=== PATIENT | female | born 1985 ===

== ENCOUNTER 2021-06-11 10:20 | Inpatient (IN) | payer BC ==
[2021-06-11] MEDS ORDERED: Acetaminophen/oxyCODONE 325-5 MG Tab PO PRN ×2 (10:37→13:35)
[2021-06-11] MEDS ORDERED: diphenhydrAMINE 50 MG/ML SDV IVPUSH PRN ×2 (10:37→13:35)
[2021-06-11] MEDS ORDERED: fentaNYL 100 MCG/2 ML SDV IVPUSH PRN ×2 (10:37)
[2021-06-11] MEDS ORDERED: HYDROmorphone 1 MG/ML Syringe IVPUSH PRN (10:37)
[2021-06-11] MEDS ORDERED: ePHEDrine 50 MG/ML SDV IVPUSH PRN (10:37)
[2021-06-11] MEDS ORDERED: Morphine 4 MG/ML VIAL IVPUSH PRN ×2 (10:37→20:11)
[2021-06-11] MEDS ORDERED: Ondansetron 4 MG/2 ML SDV IVPUSH PRN ×3 (10:37→13:35)
[2021-06-11] MEDS ORDERED: Albuterol 0.083% 2.5 MG/3 ML Neb Soln NEB PRN (10:37)
[2021-06-11] MEDS ORDERED: Naloxone 0.4 MG/ML SDV IVPUSH PRN (10:37)
[2021-06-11] MEDS ORDERED: Metoclopramide 10 MG/2 ML SDV IVPUSH PRN (10:37)
[2021-06-11] MEDS ORDERED: ceFAZolin 1 GM Vial ONE (10:49)
[2021-06-11] MEDS ORDERED: EPINEPHrine 1 MG/1 ML Amp ONE (10:49)
[2021-06-11] MEDS ORDERED: Dexmedetomidine 200 MCG/2 ML SDV ONE (10:49)
[2021-06-11] MEDS ORDERED: Ondansetron 4 MG/2 ML SDV ONE (10:49)
[2021-06-11] MEDS ORDERED: Lidocaine 2% 5 ML SDV ONE (10:49)
[2021-06-11] MEDS ORDERED: fentaNYL 100 MCG/2 ML SDV ONE (10:49)
[2021-06-11] MEDS ORDERED: Dexamethasone 4 MG/ML 5 ML MDV ONE (10:49)
[2021-06-11] MEDS ORDERED: Phenylephrine 1% 10 MG/ML SDV ONE (10:49)
[2021-06-11] MEDS ORDERED: Morphine PF 10 MG/10 ML SDV ONE (10:50)
[2021-06-11] MEDS ORDERED: Ropivacaine 0.5% 5 MG/ML 30 ML SDV ONE (10:52)
[2021-06-11] MEDS ORDERED: ceFAZolin 2 GM in Premix Bag 1 BAG IV ONE (11:14)
[2021-06-11] MEDS ORDERED: Sodium Chloride 0.9% 2.5 ML Syringe FLUSH PRN (11:14)
[2021-06-11] MEDS ORDERED: Sodium Chloride 0.9% 10 ML Syringe FLUSH PRN (11:14)
[2021-06-11] MEDS ORDERED: Sodium Chloride 0.9% 20 ML SDV IV PRN (11:14)
[2021-06-11] MEDS ORDERED: Oxytocin/0.9 % Sodium Chloride 30 UNIT/500 ML BAG IV SCH (11:15)
[2021-06-11] MEDS: Lactated Ringers 1,000 ML IV SCH ×2 (11:15→11:56)
[2021-06-11] MEDS ORDERED: Midazolam 1 MG/ML 2 ML SDV ONE (13:15)
[2021-06-11] MEDS ORDERED: Lanolin 100% Cream 7 GM Tube TOP PRN (13:35)
[2021-06-11] MEDS ORDERED: Aluminum Hydroxide/Magnesium Hydroxide/Simethicone XS Susp 30 ML Cup PO PRN (13:35)
[2021-06-11] MEDS ORDERED: Oxytocin 10 Units/1 ML SDV IM PRN (13:35)
[2021-06-11] MEDS ORDERED: Bisacodyl 10 MG Supp RECTAL PRN (13:35)
[2021-06-11] MEDS ORDERED: Methylergonovine 0.2 MG/1 ML Amp IM PRN (13:35)
[2021-06-11] MEDS ORDERED: Tranexamic Acid 1,000 MG in Sodium Chloride 0.9% 100 ML IV PRN (13:35)
[2021-06-11] MEDS ORDERED: Misoprostol 200 MCG Tab RECTAL PRN (13:35)
[2021-06-11] MEDS ORDERED: Lactated Ringers 1,000 ML IV SCH (13:45)
[2021-06-11] MEDS ORDERED: Ketorolac 30 MG/ML SDV IVPUSH SCH (13:45)
[2021-06-11] MEDS ORDERED: Calcium Chloride 10% 1 GM/10 ML Syringe IVPUSH ONE (16:11)
[2021-06-11] MEDS ORDERED: Sodium Chloride 0.9% 100 ML ONE (16:22)
[2021-06-11] MEDS ORDERED: ePHEDrine 50 MG/ML SDV IM ONE (16:30)
[2021-06-11 17:33] LABS: BLOOD UREA NITROGEN,BUN 13 mg/dL (7.0-18.0); CARBON DIOXIDE,CO2 21.2 mmol/L (21.0-32.0); CHLORIDE,CL 104 mmol/L (98-107); GLUCOSE RANDOM 133 mg/dL (74-106); POTASSIUM,K 3.7 mmol/L (3.5-5.1); SODIUM,NA 138 mmol/L (136-145)
[2021-06-11] MEDS ORDERED: Calcium Chloride 1 GM in Sodium Chloride 0.9% 100 ML IV ONE (17:45)
[2021-06-11] MEDS: Simethicone 80 MG Tab.Chew PO SCH (19:36)
[2021-06-11] MEDS ORDERED: Morphine 2 MG/ML SYRINGE IM PRN (20:07)
[2021-06-11] MEDS ORDERED: Morphine 4 MG/ML VIAL IM PRN (20:25)
[2021-06-11] MEDS ORDERED: Acetaminophen 1,000 MG in Premix Bag 1 BAG IV ONE (20:33)
[2021-06-11] MEDS: Docusate Sodium 100 MG Cap PO SCH (20:47)
[2021-06-12] MEDS: Docusate Sodium 100 MG Cap PO SCH ×2 (08:39→21:31)
[2021-06-12] MEDS: Simethicone 80 MG Tab.Chew PO SCH ×2 (11:42→18:34)
[2021-06-12] MEDS: Ibuprofen 800 MG Tab PO PRN (21:31)
[2021-06-13] MEDS: Simethicone 80 MG Tab.Chew PO SCH ×4 (00:39→11:30)
[2021-06-13] MEDS: Acetaminophen/oxyCODONE 325-5 MG Tab PO PRN ×3 (00:41→11:30)
[2021-06-13] MEDS: Ibuprofen 800 MG Tab PO PRN ×2 (05:52→14:24)
[2021-06-13] MEDS: Docusate Sodium 100 MG Cap PO SCH (09:08)
== END 2021-06-13 14:44 | disposition home or self-care (01) | DRG 540 ==
LOC: MW.OBCHECK 10:20 → MW.OB 10:23 → MW.OBCHECK 11:00 → MW.OB 11:01
PROVIDERS: ADMIT Obstetrics & Gynecology; ATTEND Obstetrics & Gynecology
PROC: 10D00Z1 Extraction of Products of Conception, Low, Open Approach (ICD-10-PCS; principal; 2021-06-11)
DX: O40.3XX0 Polyhydramnios, third trimester, not applicable or unspecified (principal); O34.211 Maternal care for low transverse scar from previous cesarean delivery; O99.824 Streptococcus B carrier state complicating childbirth; O99.12 Other diseases of the blood and blood-forming organs and certain disorders involving the immune mechanism complicating childbirth; D69.6 Thrombocytopenia, unspecified; O36.63X0 Maternal care for excessive fetal growth, third trimester, not applicable or unspecified; Z20.822 Contact with and (suspected) exposure to COVID-19; Z37.1 Single stillbirth; Z3A.38 38 weeks gestation of pregnancy
CPT/HCPCS: 01961; 36415; 51701; 51702; 59025; 64488; 80053; 82803; 84112; 85014; 85018; 85027; 85384; 85610; 86592; 86850; 86900; 86901; 86920; A9270-GY; J0131; J0171; J0690; J1100; J1790; J1885; J2250; J2270; J2274; J2370; J2405; J2795; J3010; J3490; J7120; U0002